=== PATIENT | male | born 1945 | race Two or more races ===

== ENCOUNTER 2022-01-13 11:01 | Observation (INO) ==
[2022-01-13 11:37] LABS: Basophils # (auto) 0.01 K/uL (0-0.2); Basophils % (auto) 0.2 %; Eosinophils # (auto) 0.08 K/uL (0-0.5); Eosinophils % (auto) 1.7 %; Hematocrit (blood only) 35.9 % (42-52); Hemoglobin 11.9 g/dL (14.0-18.0); Immature Granulocytes # (auto) 0.01 K/uL (0.00-0.02); Immature Granulocytes % (auto) 0.2 %; Lymphocytes # (auto) 0.94 K/uL (1.2-3.4); Lymphocytes % (auto) 19.6 %; Mean Corpuscular Hgb Conc 33.1 g/dL (32-36); Mean Corpuscular Volume 90.4 fL (80-100); Monocytes # (auto) 0.42 K/uL (0.11-0.59); Monocytes % (auto) 8.8 %; Neutrophils # (auto) 3.33 K/uL (1.4-6.5); Neutrophils % (auto) 69.5 %; Platelet Count 127 K/uL (130-400); RDW Coefficient of Variation 13.2 % (11.5-14.5); RDW Standard Deviation 43.7 fL (36.4-46.3); Red Blood Count 3.97 M/uL (4.7-6.1); White Blood Count 4.79 K/uL (4.8-10.8)
--- NOTE | 2022-01-13 11:44 | Emergency Department Note ---
Impression & Plan Left-sided chest pain ED Provider Note INFORMANT: Patient and son ED PROVIDER(S): Levar Vogt MD CHIEF COMPLAINT: Chest pain PLAN: Disposition: Admitted Condition: Good Outpatient prescription management: none Referral: None MEDICAL DECISION MAKING: Patient presented because of chest pain. He recently had a TAVR procedure done in September. His ECG was normal. CBC chemistry panel, troponin were normal. D-dimer was mildly elevated. Chest x-ray did not reveal any abnormalities. CT of the chest was performed. No evidence of dissection or abnormalities with the TAVR. The patient had a consultation placed with Dr. Hurtado of cardiology. A repeat troponin was performed. Stress testing was elected and was going to be performed however it was postponed secondary to the patient's blood pressure spiking up to 200 systolic. I discussed this with Dr. Hurtado. He rec ommended the patient staying and having blood pressure control. Nitropaste was applied. If all goes well the patient may be able to undergo the procedure tomorrow. Consultation was made with the [facility] hospitalist service. Patient was evaluated in the ER for further management. I did discuss this with the patient family and they were in agreement. Triage Nursing notes reviewed and agree them. Vital Signs: reviewed and remarkable for hypertension Differential diagnosis: Cardiac ischemia, aortic dissection, pulmonary embolism, pneumothorax, pneumonia, pericarditis, myocarditis, esophageal rupture, GERD, cholecystitis, pancreatitis, musculoskeletal, as well as other pathologies. Diagnostics interpreted by me: ECG: Twelve-lead ECG revealed sinus bradycardia 55 bpm. LVH present. No ST elevation or depression. No PACs or PVCs. Cardiac Monitoring: Cardiac monitoring ordered by me: The patient was placed on continuous cardiac monitoring and observed. It revealed a normal sinus rhythm at 63 beats per minute without ectopy or evidence of dysrhythmia. Imaging studies: Chest x-ray. Findings: A chest x-ray was performed and revealed no pneumothorax, effusion, infiltrate, pulmonary edema, free air under the diaphragm, or wide mediastinum. Impression: No acute disease. CT imaging of the chest negative for dissection or other acute pathology. HPI: The patient is a 76 year old male who presents to the Emergency Room with complaints of left chest pain. This started this morning around 0800 and is improvement. The patient also notes the following associated symptoms, epigastric abdominal pain. The patient has taken no medication for relieving factors. Current pain is rated as 3/10. Pain was a 7/10. Pain was worsened with deep breathing. This occurred 5-10 minutes after doing morning cardio PT. Patient had a TAVR done 10/14/21. Pt denies LOC, headache, fevers, chills, diaphoresis, visual changes, neck pain, SOB, nausea, vomiting, abdominal pain, back pain, melena, hematochezia, urinary symptoms, numbness, weakness, lymphadenopathy, rash, or other complaints. ROS: See above HPI for pertinent positives & negatives. A total of 10 systems reviewed and were otherwise negative. PAST MEDICAL HISTORY:See Below , PAST SURGICAL HISTORY:See Below, FAMILY HISTORY:See Below SOCIAL HISTORY:See Below, non-smoker HOME MEDICATIONS:See Below ALLERGIES:See Below VITALS:See Below PHYSICAL EXAMINATION: GENERAL: Awake, alert, well-appearing, in no distress HENT: Normocephalic, atraumatic. Oropharynx unremarkable. EYES: Normal conjunctiva. Sclera non-icteric. NECK: Inspection normal. Non-tender. Supple. No nuchal rigidity. FROM. No masses. RESPIRATORY: Clear to auscultation. No wheezes. No rales. Normal respiratory effort. CARDIAC: Normal rate. Normal rhythm. No murmurs. No rubs. Extremities warm and well perfused. Pulses equal. No JVD. GI: Soft, non-distended. No tenderness to palpation. No rebound or guarding. No masses. RECTAL: Deferred. MUSCULOSKELETAL: Atraumatic. Chest examination reveals no tenderness. The back is symmetrical on inspection without obvious abnormality. There is no CVA tenderness to palpation. No joint edema. LOWER EXTREMITIES: Calves are equal size bilaterally and non-tender. No edema. No discoloration. NEURO: Normal sensorium. No sensory or motor deficits noted. SKIN: No rash or jaundice noted. Levar Vogt MD Past Med/Surg History Social History Smoking Status: Never smoker Feels Safe at Home: Yes Allergies Allergies Allergy/AdvReac Type Severity Reaction Status Date / Time No Known Allergies Allergy Verified 01/13/22 13:56 Home Meds Home Medications Medication Instructions Recorded Confirmed aspirin 81 mg tablet,delayed 81 mg PO QAM 12/27/21 01/13/22 release (Adult Aspirin Regimen) Results & Data (ED) Vital Signs Vital Signs - 24 hr 01/13/22 11:05 01/13/22 11:21 01/13/22 11:23 Temperature 36.5 C Temperature Source Oral Pulse Rate 62 57 L Pulse Rate from SpO2 Sensor 58 L Respiratory Rate 18 16 Blood Pressure 158/76 H Blood Pressure Mean 103 Pulse Oximetry 100 100 Oxygen Delivery Method Room Air Room Air Room Air Sepsis Recent Fever Within 48 Hours No Sepsis New/Unexplained Change in Mental Status No Sepsis Action Taken by Nursing No Action Required 01/13/22 11:30 01/13/22 12:00 01/13/22 12:30 Temperature Temperature Source Pulse Rate 57 L 59 L 58 L Pulse Rate from SpO2 Sensor 58 L 59 L 60 Respiratory Rate 22 19 16 Blood Pressure 151/74 H 144/73 H 148/71 H Blood Pressure Mean 99 96 96 Pulse Oximetry 100 99 98 Oxygen Delivery Method Room Air Sepsis Recent Fever Within 48 Hours Sepsis New/Unexplained Change in Mental Status Sepsis Action Taken by Nursing 01/13/22 13:00 01/13/22 13:30 01/13/22 14:00 Temperature Temperature Source Pulse Rate 67 54 L 55 L Pulse Rate from SpO2 Sensor 80 56 L 57 L Respiratory Rate 21 22 18 Blood Pressure 162/70 H 148/73 H 147/68 H Blood Pressure Mean 100 98 94 Pulse Oximetry 100 100 98 Oxygen Delivery Method Sepsis Recent Fever Within 48 Hours Sepsis New/Unexplained Change in Mental Status Sepsis Action Taken by Nursing 01/13/22 14:30 01/13/22 15:00 01/13/22 16:13 Temperature Temperature Source Pulse Rate 58 L 61 63 Pulse Rate from SpO2 Sensor 62 64 62 Respiratory Rate 22 22 13 Blood Pressure 140/78 168/72 H 167/85 H Blood Pressure Mean 98 104 112 Pulse Oximetry 99 100 98 Oxygen Delivery Method Sepsis Recent Fever Within 48 Hours Sepsis New/Unexplained Change in Mental Status Sepsis Action Taken by Nursing Laboratory Data Result diagrams: 01/13/22 11:26 01/13/22 11:26 Lab Results 01/13/22 01/13/22 01/13/22 Range/Units 11:26 11:26 11:26 WBC 4.79 L (4.8-10.8) K/uL RBC 3.97 L (4.7-6.1) M/uL Hgb 11.9 L (14.0-18.0) g/dL Hct 35.9 L (42-52) % MCV 90.4 (80-100) fL MCH 30.0 (25-34) pg MCHC 33.1 (32-36) g/dL RDW Std Deviation 43.7 (36.4-46.3) fL RDW Coeff of Alexander 13.2 (11.5-14.5) % Plt Count 127 L (130-400) K/uL MPV 11.0 H (7.4-10.4) fL Immature Gran % (Auto) 0.2 % Neut % (Auto) 69.5 % Lymph % (Auto) 19.6 % [place] % (Auto) 8.8 % Eos % (Auto) 1.7 % Baso % (Auto) 0.2 % Neut # (Auto) 3.33 (1.4-6.5) K/uL Lymph # (Auto) 0.94 L (1.2-3.4) K/uL [place] # (Auto) 0.42 (0.11-0.59) K/uL Eos # (Auto) 0.08 (0-0.5) K/uL Baso # (Auto) 0.01 (0-0.2) K/uL Immature Gran # (Auto) 0.01 (0.00-0.02) K/uL PT 11.4 (9.0-12.0) Seconds INR 1.1 (0.9-1.1) APTT 28.2 (21.0-31.0) Seconds PTT Ratio 1.0 D-Dimer 590 H* (0-500) ug/L FEU Sodium 138 (136-145) mmol/L Potassium 3.9 (3.5-5.1) mmol/L Chloride 106 (98-107) mmol/L Carbon Dioxide 29 (21-32) mmol/L Anion Gap 3 (3-11) BUN 28 H (6-23) mg/dl Creatinine 1.09 (0.6-1.4) mg/dl Est Cr Clr Drug Dosing 53.0 ml/min Est GFR ( Amer) 75.0 ml/min Est GFR (Non-Af Amer) 64.7 ml/min BUN/Creatinine Ratio 25.7 H (10-20) Glucose 116 H (70-99(Fasting)) mg/dl Calcium 9.3 (8.5-10.1) mg/dl Total Bilirubin 0.5 (0.2-1.0) mg/dl AST 19 (13-39) U/L ALT 16 (7-52) U/L Alkaline Phosphatase 62 (34-104) U/L Troponin I < 0.03 (0-0.04) ng/ml Total Protein 7.0 (6.0-8.3) gm/dl Albumin 4.0 (3.4-5.0) gm/dl Globulin 3.0 (2.5-4.0) gm/dl Albumin/Globulin Ratio 1.3 (0.9-2) Lipase 9 L (11-82) U/L SARS-CoV-2, RNA, NAAT (NEGATIVE) 01/13/22 01/13/22 01/13/22 Range/Units 11:26 14:50 15:56 WBC (4.8-10.8) K/uL RBC (4.7-6.1) M/uL Hgb (14.0-18.0) g/dL Hct (42-52) % MCV (80-100) fL MCH (25-34) pg MCHC (32-36) g/dL RDW Std Deviation (36.4-46.3) fL RDW Coeff of Alexander (11.5-14.5) % Plt Count (130-400) K/uL MPV (7.4-10.4) fL Immature Gran % (Auto) % Neut % (Auto) % Lymph % (Auto) % [place] % (Auto) % Eos % (Auto) % Baso % (Auto) % Neut # (Auto) (1.4-6.5) K/uL Lymph # (Auto) (1.2-3.4) K/uL [place] # (Auto) (0.11-0.59) K/uL Eos # (Auto) (0-0.5) K/uL Baso # (Auto) (0-0.2) K/uL Immature Gran # (Auto) (0.00-0.02) K/uL PT (9.0-12.0) Seconds INR (0.9-1.1) APTT (21.0-31.0) Seconds PTT Ratio D-Dimer Cancelled (0-500) ug/L FEU Sodium (136-145) mmol/L Potassium (3.5-5.1) mmol/L Chloride (98-107) mmol/L Carbon Dioxide (21-32) mmol/L Anion Gap (3-11) BUN (6-23) mg/dl Creatinine (0.6-1.4) mg/dl Est Cr Clr Drug Dosing ml/min Est GFR ( Amer) ml/min Est GFR (Non-Af Amer) ml/min BUN/Creatinine Ratio (10-20) Glucose (70-99(Fasting)) mg/dl Calcium (8.5-10.1) mg/dl Total Bilirubin (0.2-1.0) mg/dl AST (13-39) U/L ALT (7-52) U/L Alkaline Phosphatase (34-104) U/L Troponin I < 0.03 (0-0.04) ng/ml Total Protein (6.0-8.3) gm/dl Albumin (3.4-5.0) gm/dl Globulin (2.5-4.0) gm/dl Albumin/Globulin Ratio (0.9-2) Lipase (11-82) U/L SARS-CoV-2, RNA, NAAT NEGATIVE (NEGATIVE) Administered Medications Discontinued Medications Ioversol (Optiray 320 125ml) 119 ml IV ONCE ONE Stop: 01/13/22 12:58 Last Admin: 01/13/22 12:58 Dose: 119 ml Documented by: [id number] Nitroglycerin (Nitroglycerin 2% Ointment 30gm Tube) 0.5 inch EXT NOW STA Stop: 01/13/22 15:56 Last Admin: 01/13/22 16:23 Dose: 0.5 inch Documented by: [id number] Imaging Data Radiologist's Impression: Chest X-Ray 01/13/22 11:21 XR chest 1V portable CLINICAL HISTORY: Atypical chest pain TECHNIQUE: Single frontal radiograph of the chest was obtained. Comparison: None available at the time of this dictation. FINDINGS: No lines and tubes are seen. The cardiomediastinal silhouette is normal. The lungs are clear. No evidence of pleural effusion or pneumothorax. IMPRESSION: No acute chest disease. ACT 112: Negative or not required by law. Electronically signed by: Yfn Carmichael M.D. 01/13/2022 12:07 PM Chest CTA 01/13/22 12:17 CT angio chest dissec wo/w con CLINICAL HISTORY: chest pain, recent TAVR TECHNIQUE: Multidetector row helical CT of the chest was performed before and after injection of IV contrast. Coronal and sagittal reformations were obtained. Automated dose lowering techniques and/or adjustment according to patient size were utilized for this exam. Comparison: None available at the time of this dictation. FINDINGS: Lungs and pleura: Biapical scarring is seen. Heart and pericardium: Heart size is normal. No pericardial effusion. Vessels: Aortic valve replacement is seen. Moderate atherosclerotic disease is seen. No evidence of dissection. Mediastinum and angus: Subcentimeter lymph nodes are seen. Chest wall and lower neck: Unremarkable. Abdomen: A hiatal hernia is seen. Bones: Degenerative changes in the thoracic spine. Incidentally noted is chondroid appearing lesion in the right humeral head, favored to represent a chondroma. IMPRESSION: No acute abnormality and in particular no evidence of acute aortic injury. Status post aortic valve replacement. ACT 112: Negative or not required by law. Electronically signed by: Yfn Carmichael M.D. 01/13/2022 1:52 PM Discharge Plan Visit Data Chief Complaint: Chest Pain Stated Complaint: CHEST PAINS, AND HIGH BP ED Provider: Levar Vogt Discharge Problem: Left-sided chest pain Forms Stand Alone Forms: My DIIME Prescriptions Prescriptions: No Action aspirin [Adult Aspirin Regimen] 81 mg tablet,delayed release (DR/EC) 81 mg PO QAM RF: 0 Referrals Referrals: PCP,NO [Primary Care Provider] -
[2022-01-13 11:47] LABS: INR 1.1 (0.9-1.1); Partial Thromboplastin Time 28.2 Seconds (21.0-31.0); Prothrombin Time 11.4 Seconds (9.0-12.0)
[2022-01-13 11:58] LABS: Alanine Aminotransferase 16 U/L (7-52); Albumin Globulin Ratio 1.3 (0.9-2); Alkaline Phosphatase 62 U/L (34-104); Anion Gap 3 (3-11); Aspartate Aminotransferase 19 U/L (13-39); BUN Creatinine Ratio 25.7 (10-20); Bilirubin,Total 0.5 mg/dl (0.2-1.0); Blood Urea Nitrogen 28 mg/dl (6-23); Calcium 9.3 mg/dl (8.5-10.1); Carbon Dioxide 29 mmol/L (21-32); Chloride 106 mmol/L (98-107); Est GFR (Non-African American) 64.7 ml/min; Glucose 116 mg/dl (70-99(Fasting)); Lipase 9 U/L (11-82); Potassium 3.9 mmol/L (3.5-5.1); Sodium 138 mmol/L (136-145)
[2022-01-13 12:00] LABS: Troponin I < 0.03 ng/ml (0-0.04)
--- NOTE | 2022-01-13 12:09 | XRay Report ---
XR chest 1V portable CLINICAL HISTORY: Atypical chest pain TECHNIQUE: Single frontal radiograph of the chest was obtained. Comparison: None available at the time of this dictation. FINDINGS: No lines and tubes are seen. The cardiomediastinal silhouette is normal. The lungs are clear. No evid ence of pleural effusion or pneumothorax. IMPRESSION: No acute chest disease. ACT 112: Negative or not required by law. Electronically signed by: Yfn Carmichael M.D. 01/13/2022 12:07 PM
[2022-01-13 12:14] LABS: D Dimer 590 ug/L FEU (0-500)
[2022-01-13] MEDS ORDERED: OPTIRAY 320 125ml IV ONE (12:57)
--- NOTE | 2022-01-13 13:53 | CT Scan Report ---
CT angio chest dissec wo/w con CLINICAL HISTORY: chest pain, recent TAVR TECHNIQUE: Multidetector row helical CT of the chest was performed before and after injection of IV c ontrast. Coronal and sagittal reformations were obtained. Automated dose lowering techniques and/or a djustment according to patient size were utilized for this exam. Comparison: None available at the time of this dictation. FINDINGS: Lungs and pleura: Biapical scarring is seen. Heart and pericardium: Heart size is normal. No pericardial effusion. Vessels: Aortic valve replacement is seen. Moderate atherosclerotic disease is seen. No evidence of d issection. Mediastinum and angus: Subcentimeter lymph nodes are seen. Chest wall and lower neck: Unremarkable. Abdomen: A hiatal hernia is seen. Bones: Degenerative changes in the thoracic spine. Incidentally noted is chondroid appearing lesion i n the right humeral head, favored to represent a chondroma. IMPRESSION: No acute abnormality and in particular no evidence of acute aortic injury. Status post aortic valve r eplacement. ACT 112: Negative or not required by law. Electronically signed by: Yfn Carmichael M.D. 01/13/2022 1:52 PM
[2022-01-13] MEDS ORDERED: NITROGLYCERIN 2% OINTMENT 30GM TUBE EXT STA (15:55)
--- NOTE | 2022-01-13 17:33 | History & Physical Report ---
Date of Service January 13, 2022 Assessment & Plan (1) Left-sided chest pain: Plan: -Currently without chest pain. -Troponin x2 negative today which is reassuring. -Stress test in a.m. pending adequate BP control. -Patient reportedly is on no home medications besides a baby aspirin daily. Per Dr. Das's note from 12/27/2021, patient has had elevated blood pressures both at home and in office and would likely benefit from an antihypertensive. He is hypertensive today in the ED. -Nitro-Bid for BP control. -HbA1c and lipid panel ordered for tomorrow a.m. (2) Aortic stenosis: Plan: -Status post TAVR in September 2021 at [facility] in [place]. -Chest CTA today without any acute aortic injury. (3) Hypertension: Plan: -Hypertensive in ED with SBP in 150s 160s, increased to 190-200 directly before stress test, therefore stress test was canceled. Not on any medications. -Nitro-Bid paste every 6 as needed for BP control. Continue to monitor. Plan: -Observation on [facility] w/ telemetry. -SCDs, Lovenox for DVT prophylaxis. -Full code. History of Present Illness Chief Complaint: chest pain Primary Care Provider: NO PCP Patient is 68-year-old male with past medical history of aortic stenosis status post TAVR in September 2021 who presents today with chest pain this morning. Patient was exercising when he began to experience central chest pain with radiation to his upper abdomen that was worse with respirations. Pain was initially 7/10, now 3/10. Did not take any medications at home for alleviation. Denies fever/chills, fatigue, myalgias, weakness, chest wall injury, diaphoresis, palpitations, radiation of chest pain to shoulders, arms, neck, jaw, or back, denies shortness of breath, cough, recent URI, nausea, vomiting, urinary or BM changes. In ED, patient is hypertensive, otherwise vital signs stable and within normal limits. Labs largely unremarkable with the exception of mild pancytopenia (WBC 4.79, RBC 3.97, platelet 127), BUN 28, glucose 116. Troponin negative x2. D- dimer mildly elevated at 590, chest CTA did not show any acute abnormality and in particular no evidence of acute aortic injury. Cardiology was consulted, plan was initially to undergo stress test today without admission, however prior to beginning the stress test, patient's blood pressure was elevated with SBP 190s to 200. For this reason, stress test was canceled and patient was recommended to be admitted for observation overnight and stress test in a.m. Allergies Allergy/AdvReac Type Severity Reaction Status Date / Time No Known Allergies Allergy Verified 01/13/22 13:56 Home Medications Medication Instructions Recorded Confirmed Type aspirin 81 mg tablet,delayed 81 mg PO QAM 12/27/21 01/13/22 History release (Adult Aspirin Regimen) Past Med/Surg History Social History Smoking Status: Former smoker Hx Alcohol Use: No Hx Substance Use: No Preferred Language: Bulgarian Communication Tools: IPad and Language Line Fisheries Officer Fisheries Officer Required: Yes and Voice Beliefs That Will Affect Care: Cultural Current Living Situation: Spouse Feels Safe at Home: No Assistive Devices: None Review of Systems Review of Systems: Constitutional: No fever, sweats or chills Eyes: No diplopia, no worsening or blurred vision ENT: normal hearing, no trouble swallowing Respiratory: No cough, sputum, dyspnea at rest or on exertion Cardiovascular: chest pain this AM with exercise, currently without chest pain, tightness or palpitations Abdomen: No pain, nausea, vomiting, diarrhea or constipation Musculoskeletal: No joint pain, calf pain, swelling Neurologic: No weakness, numbness/tingling, or balance problems Psychiatric: No anxiety or depression Skin: No rash or itch Physical Exam Physical Exam: General: awake, alert, no apparent distress Head: Normocephalic, atraumatic ENT: PERRL, EOMI, no pharyngeal exudate, mucous membranes moist Chest: Clear to auscultation, on room air, no adventitious breath sounds Cardiac: Regular rate and rhythm, no murmur, no JVD, normal peripheral pulses, good capillary refill Abdominal: NABS x 4 quadrants, soft, nontender to palpation, no rebound, guarding or tenderness Extremities: Normal inspection, no peripheral edema or erythema, calfs nontender to palpation Psych: Normal mood and affect Neuro: AAO x 3, strength intact bilaterally and rated 5/5, no motor deficits, speech is clear, no peripheral sensory deficits Skin: no rash or erythema Results & Data Results & Data ([facility]) Vital Signs (Past 12 Hours) Vital Signs Temp Pulse Resp BP Pulse Ox 01/13/22 16:13 63 13 167/85 H 98 01/13/22 15:00 61 22 168/72 H 100 01/13/22 14:30 58 L 22 140/78 99 01/13/22 14:00 55 L 18 147/68 H 98 01/13/22 13:30 54 L 22 148/73 H 100 01/13/22 13:00 67 21 162/70 H 100 01/13/22 12:30 58 L 16 148/71 H 98 01/13/22 12:00 59 L 19 144/73 H 99 01/13/22 11:30 57 L 22 151/74 H 100 01/13/22 11:23 57 L 16 100 01/13/22 11:05 36.5 C 62 18 158/76 H 100 Laboratory Results Abnormal lab results 01/13/22 01/13/22 01/13/22 Range/Units 11:26 11:26 11:26 WBC 4.79 L (4.8-10.8) K/uL RBC 3.97 L (4.7-6.1) M/uL Hgb 11.9 L (14.0-18.0) g/dL Hct 35.9 L (42-52) % Plt Count 127 L (130-400) K/uL MPV 11.0 H (7.4-10.4) fL Lymph # (Auto) 0.94 L (1.2-3.4) K/uL D-Dimer 590 H* (0-500) ug/L FEU BUN 28 H (6-23) mg/dl BUN/Creatinine Ratio 25.7 H (10-20) Glucose 116 H (70-99(Fasting)) mg/dl Lipase 9 L (11-82) U/L Diagnostic Findings Chest X-Ray 01/13/22 11:21 XR chest 1V portable CLINICAL HISTORY: Atypical chest pain TECHNIQUE: Single frontal radiograph of the chest was obtained. Comparison: None available at the time of this dictation. FINDINGS: No lines and tubes are seen. The cardiomediastinal silhouette is normal. The lungs are clear. No evidence of pleural effusion or pneumothorax. IMPRESSION: No acute chest disease. ACT 112: Negative or not required by law. Electronically signed by: Yfn Carmichael M.D. 01/13/2022 12:07 PM Chest CTA 01/13/22 12:17 CT angio chest dissec wo/w con CLINICAL HISTORY: chest pain, recent TAVR TECHNIQUE: Multidetector row helical CT of the chest was performed before and after injection of IV contrast. Coronal and sagittal reformations were obtained. Automated dose lowering techniques and/or adjustment according to patient size were utilized for this exam. Comparison: None available at the time of this dictation. FINDINGS: Lungs and pleura: Biapical scarring is seen. Heart and pericardium: Heart size is normal. No pericardial effusion. Vessels: Aortic valve replacement is seen. Moderate atherosclerotic disease is seen. No evidence of dissection. Mediastinum and angus: Subcentimeter lymph nodes are seen. Chest wall and lower neck: Unremarkable. Abdomen: A hiatal hernia is seen. Bones: Degenerative changes in the thoracic spine. Incidentally noted is chondroid appearing lesion in the right humeral head, favored to represent a chondroma. IMPRESSION: No acute abnormality and in particular no evidence of acute aortic injury. Status post aortic valve replacement. ECG Additional Comments: Sinus bradycardia, minimal voltage criteria for LVH, may be normal variant Borderline ECG No previous ECGs available -No ST segment or T wave changes. Code Status & VTE Plan Code Status Full code. VTE Prophylaxis Plan VTE Prophylaxis will be ordered: Yes Supervising Physician Co-Signing Physician Notes I personally saw and examined the patient. I verified all martin points and agree with Marija Park PA-C with the following exceptions and/or additions: 76 year old male presents with left sided chest pain. Troponin x2 negative. ER physician discussed with cardiology and initially planned on stress echo however postponed due to BP spiking to sBP 200. Currently not in any chest pain when seen. O/E HS LADONNA 3/6 loudest LUSB, RRR, Chest CTAB, Abdo SNT, BS normal A/P Chest pain - possible unstable angina. Continue 1 inch nitro paste for BP management overnight. Consult cardiology for stress echo cardiogram. EKG without ischemic changes. PG Care Time/CCT Total # of Minutes Spent Total Time Spent with Patient: Total time spent is greater than 50% in coordination of care (as documented) at patient's floor/unit and/or counseling patient: Coding Level of Care Code INT OBSERVATION CARE 50M LVL 2 Diagnoses Left-sided chest pain R07.9 Aortic stenosis I35.0 Hypertension I10
[2022-01-13] MEDS ORDERED: ACETAMINOPHEN 325 MG TAB PO PRN (20:26)
[2022-01-13] MEDS ORDERED: POLYETHYLENE (MIRALAX) 17 GM PACK PO PRN (20:26)
[2022-01-13] MEDS ORDERED: ONDANSETRON INJ 2 MG/ML 2 ML VIAL IV PRN (20:26)
[2022-01-13] MEDS ORDERED: ENOXAPARIN INJ 40 MG/0.4 ML SYR SQ SCH (21:00)
[2022-01-13] MEDS: NITROGLYCERIN 2% OINTMENT 30GM TUBE EXT SCH ×2 (21:46→23:59)
[2022-01-14] MEDS: NITROGLYCERIN 2% OINTMENT 30GM TUBE EXT SCH ×2 (06:13→13:32)
[2022-01-14 07:41] LABS: Basophils # (auto) 0.02 K/uL (0-0.2); Basophils % (auto) 0.4 %; Eosinophils # (auto) 0.12 K/uL (0-0.5); Eosinophils % (auto) 2.4 %; Hemoglobin 10.5 g/dL (14.0-18.0); Immature Granulocytes # (auto) 0.01 K/uL (0.00-0.02); Immature Granulocytes % (auto) 0.2 %; Lymphocytes # (auto) 1.45 K/uL (1.2-3.4); Lymphocytes % (auto) 29.3 %; Mean Corpuscular Hemoglobin 30.3 pg (25-34); Mean Corpuscular Hgb Conc 33.9 g/dL (32-36); Mean Corpuscular Volume 89.6 fL (80-100); Mean Platelet Volume 10.4 fL (7.4-10.4); Monocytes % (auto) 10.1 %; Neutrophils # (auto) 2.85 K/uL (1.4-6.5); Neutrophils % (auto) 57.6 %; Platelet Count 127 K/uL (130-400); RDW Coefficient of Variation 13.2 % (11.5-14.5); Red Blood Count 3.46 M/uL (4.7-6.1); White Blood Count 4.95 K/uL (4.8-10.8)
[2022-01-14 08:04] LABS: BUN Creatinine Ratio 28.1 (10-20); Calcium 8.8 mg/dl (8.5-10.1); Chol HDL Ratio 3.8 (0-5); Creatinine Clr Calc Pharmacy 59.7 ml/min; Est GFR (African American) 87.4 ml/min; Est GFR (Non-African American) 75.4 ml/min; Magnesium 1.7 mg/dl (1.7-2.4)
[2022-01-14] MEDS ORDERED: ASPIRIN 81 MG ECTAB PO SCH (09:00)
[2022-01-14 09:33] LABS: Estimated Average Glucose 105 mg/dl; Hemoglobin A1C 5.3 % (4.5-5.6)
--- NOTE | 2022-01-14 11:50 | XCELERA ---
[id number] \\[id number]
--- NOTE | 2022-01-14 15:04 | Cardiology Consultation ---
Date of Consultation January 14, 2022 Assessment & Plan (1) Pleuritic chest pain: (2) S/P TAVR (transcatheter aortic valve replacement): (3) Hypertension: ASSESSMENT/PLAN: 1. Pleuritic chest pain: Not consistent with ischemic heart disease. Reportedly unremarkable cardiac catheterization the latter part of 2020. Negative stress echo imaging today. Chest discomfort has completely resolved. No further cardiac evaluation necessary at this time. 2. s/p TAVR: Appropriately functioning valve as noted on recent echo in the outpatient setting. Aspirin 81 mg daily. SBE prophylaxis for dental procedures. 3. Hypertension: Blood pressure was elevated at outpatient cardiology appoint ment with Dr. Das and antihypertensive therapy was mentioned at that time. Blood pressure was quite elevated at the time of presentation, which also could have contributed to his chest discomfort. Discussed potential of initiating antihypertensive agent however blood pressure today has been normotensive without any specific therapy. He also reports systolic blood pressures at home normal in the mornings ranging 123-133 while mildly elevated in the afternoons. Could consider low-dose amlodipine but given normal and low-normal blood pressures today, no change made at this time. 4. Disposition: Can be discharged home from a cardiology standpoint. Recommend follow-up in the outpatient office to monitor blood pressure with PCP or his director prison, Dr. Das. His son states that he has no PCP. Plan of care discussed with Dr. Peng of the primary hospitalist service. Today's visit was 48 min in duration, with greater than 50% of that time spent counseling patient, coordinating care and also reviewing multiple studies, chart review, and chart completion. Thank you for allowing me to participate in the care of your patient. Please call for any other questions or concerns. Sincerely, Jaime Hurtado M.D. History of Present Illness Reason for Consultation: Chest pain Requesting Physician: Yonathan Peng MD Attending Physician: Yonathan Peng MD History of Present Illness Mr. Barrientos is a 76-year-old non-Thai speaking gentleman with a history significant for aortic stenosis s/p TAVR. His local primary director prison is Dr. Das. His home is in [place], but during the COVID-19 pandemic, he has been staying with his son, Shantel, who was present at the bedside. 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 He was admitted on 01/13/2022 with chest discomfort. He described bilateral chest discomfort that would radiate into the epigastric area. This occurred suddenly while he was doing a deep breathing Yoga exercise. The pain was pleuritic in nature, only occurring with deep inspiration and then completely resolving. This continued to occur for approximately 2 hours. In the emergency department, a stress echo was ordered but when he came to the Echo Department, he was significantly hypertensive with systolic blood pressures 190s to 200s, even when checked on a manual cuff. He was then sent back to the emergency department, which recommended admission. He has not had any further chest discomfort. He denies shortness of breath now or prior to presentation. He denies palpitations, syncope, near-syncope, edema, bleeding, or other symptoms. He exercises daily, including walking for a few km at a time. He had a cardiac catheterization prior to TAVR and his son reports that the catheterization was normal. He underwent TAVR at [facility] in [place]. Review of systems: As above. Review of systems otherwise negative/unremarkable. Family history: Older brother at the age of 73 from [place]. Social history: Denies smoking, alcohol, or drug abuse. Lives with his in [place], but has been living with his son during the COVID-19 pandemic, locally. He has 2 sons, 1 of which is a radiologist in [place]. His other son, Shantel, was present at the bedside. Allergies Allergy/AdvReac Type Severity Reaction Status Date / Time No Known Allergies Allergy Verified 01/13/22 13:56 Home Medications Medication Instructions Recorded Confirmed Type aspirin 81 mg tablet,delayed 81 mg PO QAM 12/27/21 01/13/22 History release (Adult Aspirin Regimen) Patient History Medical History (Updated 01/14/22 @ 16:19 by Ulices Hurtado MD) Aortic stenosis s/p TAVR Surgical History (Updated 01/14/22 @ 16:19 by Ulices Hurtado MD) S/P TAVR (transcatheter aortic valve replacement) Social History Smoking Status: Former smoker Hx Alcohol Use: No Hx Substance Use: No Preferred Language: Arabic Communication Tools: Language Line 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 Alert and oriented. HEENT: Anicteric sclera. Neck: No JVD. No bruits. Normal carotid upstrokes bilaterally. Cardiac: PMI was nondisplaced. No ventricular heave. Regular. Normal S1-S2. 1/6 systolic ejection murmur at RUSB. No rubs or gallops. Pulmonary: Clear to auscultation bilaterally without wheezes, rales, or rhonchi. Abdomen: Soft, nontender, nondistended, with normoactive bowel sounds. No bruits noted. Extremities: 2+ radial pulses bilaterally. 2+ posterior tibialis pulses bilaterally. No edema or cyanosis. Psychiatric: Affect appears appropriate. Chest: Nontender to palpation. Results & Data ([facility]) Vital Signs (Past 12 Hours) Vital Signs Temp Pulse Resp BP Pulse Ox 01/14/22 11:00 36.5 C 65 14 133/67 98 01/14/22 06:54 36.8 C 70 20 103/55 L 95 01/14/22 06:22 111/51 L Laboratory Results Laboratory Results - last 24 hr 01/13/22 01/13/22 01/14/22 14:50 15:56 07:15 WBC 4.95 RBC 3.46 L Hgb 10.5 L Hct 31.0 L MCV 89.6 MCH 30.3 MCHC 33.9 RDW Std Deviation 43.0 RDW Coeff of Alexander 13.2 Plt Count 127 L MPV 10.4 Immature Gran % (Auto) 0.2 Neut % (Auto) 57.6 Lymph % (Auto) 29.3 [place] % (Auto) 10.1 Eos % (Auto) 2.4 Baso % (Auto) 0.4 Neut # (Auto) 2.85 Lymph # (Auto) 1.45 [place] # (Auto) 0.50 Eos # (Auto) 0.12 Baso # (Auto) 0.02 Immature Gran # (Auto) 0.01 Sodium Potassium Chloride Carbon Dioxide Anion Gap BUN Creatinine Est Cr Clr Drug Dosing Est GFR ( Amer) Est GFR (Non-Af Amer) BUN/Creatinine Ratio Glucose Estimat Average Glucose Hemoglobin A1c Calcium Magnesium Troponin I < 0.03 Triglycerides Cholesterol LDL Cholesterol, Calc VLDL Cholesterol, Calc HDL Cholesterol Cholesterol/HDL Ratio SARS-CoV-2, RNA, NAAT NEGATIVE 01/14/22 01/14/22 01/14/22 07:15 07:15 07:15 WBC RBC Hgb Hct MCV MCH MCHC RDW Std Deviation RDW Coeff of Alexander Plt Count MPV Immature Gran % (Auto) Neut % (Auto) Lymph % (Auto) [place] % (Auto) Eos % (Auto) Baso % (Auto) Neut # (Auto) Lymph # (Auto) [place] # (Auto) Eos # (Auto) Baso # (Auto) Immature Gran # (Auto) Sodium 138 Potassium 4.0 Chloride 106 Carbon Dioxide 27 Anion Gap 5 BUN 27 H Creatinine 0.96 Est Cr Clr Drug Dosing 59.7 Est GFR ( Amer) 87.4 Est GFR (Non-Af Amer) 75.4 BUN/Creatinine Ratio 28.1 H Glucose 80 Estimat Average Glucose 105 Hemoglobin A1c 5.3 Calcium 8.8 Magnesium 1.7 Troponin I < 0.03 Triglycerides 64 Cholesterol 157 LDL Cholesterol, Calc 103 VLDL Cholesterol, Calc 13 HDL Cholesterol 41 Cholesterol/HDL Ratio 3.8 SARS-CoV-2, RNA, NAAT Diagnostic Findings Telemetry personally reviewed: Sinus rhythm with sinus bradycardia in the 50s. Outpatient echo 01/11/2022: Reported appropriately functioning bioprosthetic aortic valve. Stress echo 01/14/2022: Negative stress echo for ischemic changes at 96% MPHR. Abnormal exercise stress ECG. 6 minutes Jr protocol. Mildly hypertensive blood pressure response. ECG personally reviewed 01/13/2022: Sinus bradycardia 55 beats per minute. CTA chest 01/13/2022: No evidence of acute aortic injury per Radiology. Medications Administered Current Inpatient Medications Acetaminophen (Acetaminophen 325 Mg Tab) 650 mg PO Q4H PRN PRN Reason: Pain or Fever Stop: 02/12/22 20:25 Aspirin (Aspirin 81 Mg Ectab) 81 mg PO QAM [facility] Stop: 02/13/22 08:59 Last Admin: 01/14/22 10:04 Dose: 81 mg Documented by: Enoxaparin Sodium (Enoxaparin Inj 40 Mg/0.4 Ml Syr) 40 mg SQ Q24H [facility] Stop: 02/12/22 20:59 Last Admin: 01/13/22 21:47 Dose: 40 mg Documented by: Ondansetron HCl (Ondansetron Inj 2 Mg/Ml 2 Ml Vial) 4 mg IV Q6H PRN PRN Reason: Nausea Stop: 02/12/22 20:25 Polyethylene Glycol (Polyethylene (Miralax) 17 Gm Pack) 17 gm PO DAILY PRN PRN Reason: Constipation Stop: 02/12/22 20:25 PG Care Time/CCT Total # of Minutes Spent Total Time Spent with Patient: Total time spent is greater than 50% in coordination of care (as documented) at patient's floor/unit and/or counseling patient: Coding Level of Care Code 19106 Office/Outpt Visit, Est Diagnoses Pleuritic chest pain R07.81 S/P TAVR (transcatheter aortic valve replacement) Z95.2 Hypertension I10
--- NOTE | 2022-01-14 16:00 | Discharge Summary ---
Date of Service January 14, 2022 Admission HPI Per Admitting Provider Patient is 68-year-old male with past medical history of aortic stenosis status post TAVR in September 2021 who presents today with chest pain this morning. Patient was exercising when he began to experience central chest pain with radiation to his upper abdomen that was worse with respirations. Pain was initially 7/10, now 3/10. Did not take any medications at home for alleviation. Denies fever/chills, fatigue, myalgias, weakness, chest wall injury, diaphoresis, palpitations, radiation of chest pain to shoulders, arms, neck, jaw, or back, denies shortness of breath, cough, recent URI, nausea, vomiting, urinary or BM changes. In ED, patient is hypertensive, otherwise vital signs stable and within normal limits. Labs largely unremarkable with the exception of mild pancytopenia (WBC 4.79, RBC 3.97, platelet 127), BUN 28, glucose 116. Troponin negative x2. D- dimer mildly elevated at 590, chest CTA did not show any acute abnormality and in particular no evidence of acute aortic injury. Cardiology was consulted, plan was initially to undergo stress test today without admission, however prior to beginning the stress test, patient's blood pressure was elevated with SBP 190s to 200. For this reason, stress test was canceled and patient was recommended to be admitted for observation overnight and stress test in a.m. Principal Diagnosis Atypical chest pain Discharge Exam Constitutional WD/WN, vitals as above Eyes + anicteric sclerae; normal pupil size Respiratory normal respiratory effort, lungs clear to auscultation Cardiovascular RRR, no murmur, no edema Gastrointestinal (Abdomen) Percussion/Palpation: abdomen soft; abdomen nontender Discharge Data Allergies Allergy/AdvReac Type Severity Reaction Status Date / Time No Known Allergies Allergy Verified 01/13/22 13:56 Consultations 01/14/22 07:33 Consult Cardiology Routine Ordered Studies 01/13/22 12:17 CT angio chest dissec wo/w con Stat IMPRESSION: No acute abnormality and in particular no evidence of acute aortic injury. Status post aortic valve replacement. Hospital Course (1) Left-sided chest pain: Clementine Barrientos is a 76 year old male observed overnight at [facility] from January 13 - [address] due to chest pain. CT for pulmonary embolism was negative. Stress echo cardiogram for coronary artery disease was negative. No cause of his chest pain was identified but suspect most likely musculoskeletal given it occurred with yoga movements. Due to your normal blood pressure on discharge, no new medications have been prescribed for this. He was advised to follow up with his pbx technician with outpatient blood pressure measurements as discussed. (2) Aortic stenosis: (3) Hypertension: Total Time Total Time Spent Total Time Spent (In Minutes): 20 Discharge Plan Discharge Items Patient Disposition: Home - Self-Care Reason For Visit: CHEST PAIN WITH ACTIVITY, S/P TAVR Discharge Diagnosis: Atypical chest pain Activity: Resume your previous activity Non-emergency contact: Primary Care Provider Call non-emergency contact if: you have any medication questions and your symptoms worsen Follow-up/Referrals: Mina Das MD [Physician] - 01/28/22 10:45 am (Follow up chest pain and hypertension in 2 weeks) PCP,NO [Primary Care Provider] - Diet: Heart Healthy Addtl Attending Provider Instructions: You were observed overnight at [facility] from January 13 - [address] due to chest pain. CT for pulmonary embolism was negative. Stress echo cardiogram for coronary artery disease was negative. No cause of your chest pain was identified but suspect most likely musculoskeletal given it occurred with yoga movements. Due to your normal blood pressure on discharge, no new medications have been prescribed for this. Please follow up with your pbx technician without outpatient measurements as discussed. Pending Studies at Discharge: No Stand-Alone Forms: [facility], Smoking Cessation Medications and DC Order Prescriptions: Continued aspirin [Adult Aspirin Regimen] 81 mg tablet,delayed release (DR/EC) 81 mg PO QAM RF: 0 Discharge Orders: Discharge Order (Routine); Ordered 01/14/22 Ordered By: Yonathan Peng Admission Data Admit Date/Time: 01/13/22 17:21 Attending Provider: Yonathan Peng Admit Provider: Yonathan Peng Primary Care Provider: PCP,NO Other Providers: Ulices Hurtado Other Interventions: Discharge Summary Assessment (RN) Last Done: 01/14/22 16:11 Coding Level of Care Code 37614 OBS Care - Discharge Diagnoses Left-sided chest pain R07.9 Aortic stenosis I35.0 Hypertension I10
--- NOTE | 2022-01-14 18:00 | Electrocardiogram Report ---
Test Reason : Blood Pressure : / mmHG Vent. Rate : 055 BPM Atrial Rate : 055 BPM P-R Int : 176 ms QRS Dur : 086 ms QT Int : 418 ms P-R-T Axes : 075 066 065 degrees QTc Int : 399 ms Sinus bradycardia Minimal voltage criteria for LVH, may be normal variant Borderline ECG No previous ECGs available Confirmed by Ulices Hurtado ([id number]) on 01/14/2022 6:00:31 PM Referred By: Confirmed By:Ulices Hurtado
== END 2022-01-14 16:34 | disposition home or self-care (01) ==
LOC: 2N 11:01 → ED 11:01 → 2N 19:47